=== PATIENT | male | born 1990 | race Caucasian/White ===

== ENCOUNTER 2016-07-26 09:45 | Inpatient (IN) | payer OTHER ==
[~2016-07-26] VITALS: Ht 180.3 cm; Wt 78.1 kg
--- NOTE | ~2016-07-26 | TXPLANREV ---
"PATIENT: JUSTICE RUIZ | | [facility] UNIT #: [id number] | [address] AGE/SEX: 26 M : 89 | [address] | [place] [address] ADMIT/REG DATE: 07/26/16 | ROOM: [facility] LOC: ADTC | ADTC | Treatment Plan/Staffing Review Date: 08/23/16 Treatment plan was reviewed and determined appropriate as written: yes, client is working on relapse prevention, he didn't do Con Game packet as didnt relate or understand so switched criminogenic packet to easier one with stages of recovery. Treatment plan was reviewed and the following changes/addition/deletions are necessary: Discharge plans were reviewed and determined appropriate as previously documented: Client discharges on 08/30/16 (his stay was extended 1 week) and he is referred to the [facility] and [facility] if openings. We havent heard back from probation to find out if 3/4way house is an option, otherwise, client is to return to care home. He also is referred to AA/NA 3-7x weekly and calling sponsor daily. Discharge plans were reviewed and determined to be as follows: Other pertinent issues discussed during this staffing review include: Client did get sponsor and has used him. He wants structure of 1/2way house to help him with recovery which shows acceptance. Client seems to procrastinate or have difficulty asking for help. Staff Present: Dr. Alvarez, Kirsten Wilson, Marifer Nicholas, Marjorie Jaquez, Lynn Bliss PRIMARY COUNSELOR: Danielle Adan Client Signature Counselor Signature Date Time "
--- NOTE | ~2016-07-26 | INDIVTXPL2 ---
"PATIENT: JUSTICE RUIZ | | [facility] UNIT #: [id number] | [address] AGE/SEX: 26 M : 89 | [address] | [place] [address] ADMIT/REG DATE: 07/26/16 | ROOM: [facility] LOC: ADTC | ADTC | Individualized Treatment Plan DATE: 08/04/16 Problem Statement/Issue Identified: Client is experiencing family discord and distancing as a result of past alcohol & drug usage. Goal: Client is to learn about effects of addiction on family/self and learn how to build more honest/open communication with family to gain support in his recovery. Objectives/Activities to achieve goal: 1. Client is to attend Family Educational program and participate and Sunday starting at 2pm. See Family notes. Due Date: 08/14/16 Complete: Incomplete: 2. Client is to have family session and build more open communication and listen to how his addiction affected his family. See Family Session note. Due Date: 08/14 at 1pm or by 08/23/16 Complete: Incomplete: 3. Client is to write feelings letters owning how his addiction hurt loved ones, making ammends, sharing feelings, etc. Share with family or in a group. Due Date: 08/23/16 Complete: Incomplete: Client Signature Date Counselor Signaure: Date Outcome/Measurement of Progress Towards Goal: Counselor Signature: Date "
--- NOTE | ~2016-07-26 | INDIVTXPL2 ---
"PATIENT: JUSTICE RUIZ | | [facility] UNIT #: [id number] | [address] AGE/SEX: 26 M : [birth year] | [address] | [place] [address] ADMIT/REG DATE: 07/26/16 | ROOM: [facility] LOC: ADTC | ADTC | Individualized Treatment Plan DATE: 08/09/16 Problem Statement/Issue Identified: Client needs to identify relapse warning signs and develop a plan to deal with them as they arise. Goal: Client is to learn about relapse prevention, identifying relapse triggers and how to avoid relapse. Objectives/Activities to achieve goal: 1. Client is to attend Relapse Prevention class every Sunday when in treatment and participate. See class notes. Due Date: 08/22/16 Complete: Incomplete: 2. Client is to fill out Relapse Prevention packet, identifying his top 10 relapse triggers. Discuss with counselor how to cope to avoid relapse. See counselor notes and share selected pages in group. Due Date: ongoing Complete: Incomplete: Client Signature Date Counselor Signaure: Date Outcome/Measurement of Progress Towards Goal: Counselor Signature: Date "
--- NOTE | ~2016-07-26 | CLPRLASSUM ---
"PATIENT: JUSTICE RUIZ | | [facility] UNIT #: [id number] | [address] AGE/SEX: 26 M : 89 | [address] | [place] [address] ADMIT/REG DATE: 07/26/16 | ROOM: [facility] LOC: ADTC | ADTC | Client Problem List/Assessment Summary Date: 08/01/16 Problems identified by the client: addiction, family/guilt, self-esteem, spirituality, relapse prevention Problems identified by significant others: addiction, being responsible/proud of self Client's Strengths: caring, smart, outgoing Problem List: Code: T Client needs to address addiction and criminal attitudes which leads to substance abuse and crimes. Code: T Client is experiencing family discord and distancing as a result of past alcohol & drug usage. Code: T Client needs to identify ways to improve self esteem to help maintain halfway sobriety from all mood altering substances. Code: T Client use to attend uatsdin, now has confusion about Higher Power and spirituality which got lost in his abuse of chemicals. Code: T Client needs to identify relapse warning signs and develop a plan to deal with them as they arise. Code Johnston: T: to be addressed during course of treatment O: problem noted, expected to resolve itself with abstinence--specific tx plan not required R: problem noted, will be referred upon discharge PRIMARY COUNSELOR: Danielle Adan"
--- NOTE | ~2016-07-26 | RESCARESUM ---
PATIENT: JUSTICE RUIZ | | [facility] UNIT #: [id number] | [address] AGE/SEX: 26 M : 89 | [address] | [place] [address] ADMIT/REG DATE: 07/26/16 | ROOM: [facility] LOC: ADTC | ADTC | Summary of Residential Care Primary Counselor: Danielle Adan [facility] Date of Admission: 07/26/16 Date of Discharge: 08/29/16 Referral Source: Auditing Specialist, Application Architect Manager and self Primary Care Provider Prior to Admission: no doctor listed Admitting Diagnosis: 304.30 Cannabis use disorder-severe, 303.90 Alcohol use disorder-severe, 304.40 Stimulant use disorder-moderate, 305.1 Tobacco Dependency Discharge Diagnosis: same Goals Achieved: Client successfully completed residential treatment for addiction and in his doing step 1 he seemed to fully accept his powerlessness over drugs/alcohol. Client asked to go to a structured environment like a 1/2way house as he felt he needs alot of help/support. Client magnus did work on self-esteem, started to address spirituality, worked on feelings letters with family, and starting to deal with feelings better. Client did work on Relapse Prevention and will need to continue work in aftercare at [facility]. He did do EMDR to help improve his self-esteem and had some woundedness from dad being very proud of him but then dropped out of sports perceived he lost sense of feeling loved by father. He may benefit from further work on these issues if willing, but did gain insight. Clients anger showed up when had alot of anxiety about finding an opening at a 1/2way house but he did handle it well and gained insight into his feelings. Continued Obstacles to Sobriety/Relapse Issues: boredom, isolating, stress/worry(family issues), negative attitude, lack of taking action/ procrastination/laziness, stuffing feelings, not asking for help, worry about others instead of self, old people/places/things, put on front "I'm Fine", feeling different or not as bad as. Family Issues Addressed: Clients dad and mom did come to a family session and counselor did encourage them both to do counseling for their on chemical issues. Mom attended entire family program and dad attended one day. Mom shared she is new to recovery and meetings and hopeful to be on Drug Court. Client tends to worry about his parents. x Individual Therapy x Group Therapy x Educational Series on Substance Abuse x Parents/Significant Others Attended Family Program Acute Medical Problems During the Course of Treatment Transferred to Hospital During the Course of Treatment x Accepting of Substance Abuse Problem Non-accepting of Substance Abuse Problem Required Psychological or Psychiatric Consultation During the Course of Treatment Completed AA Step # 1 During This Level of Care PATIENT: JUSTICE RUIZ | | [facility] UNIT #: [id number] | [address] [place] [address] AGE/SEX: 26 M : [birth year] | [address] | [place] [address] ADMIT/REG DATE: 07/26/16 | ROOM: [facility] LOC: ADTC | [facility] | Summary of Residential Care Significant Incidences During Treatment: Reason For Discharge: x Completed Residential TX Goals and Ready For Next Level of Care Left Tx Against Medical Advice/Treatment Goals Not Complete Completed Residential Tx Goals But Refusing Continuing Care Recommendations Discharged Due to Noncompliance/Treatment Goals not Completed Discharged Earlier Than Planned Due to: Continuing Care Plan/Recommendations: Intensive Partial Care x Sponsor Partial Care x AA Meetings/NA Meetings Outpatient Co-dependency Services Therapeutic Community x 1/2 Way House 3/4 Way House Mental Health Therapy Marriage Counseling Other Specific Continuing Care Plan: Client is being referred to the [facility] and is to enter their program today!! He will benefit by working on spirituality/relationship with God, stress/anxiety, money management, steps 2-8, stuffing feelings and worrying about his family/improving family relationships and communication. PRIMARY COUNSELOR: Danielle Adan
--- NOTE | ~2016-07-26 | TXPLANREV ---
"PATIENT: JUSTICE RUIZ | | [facility] UNIT #: [id number] | [address] AGE/SEX: 26 M : 89 | [address] | [place] [address] ADMIT/REG DATE: 07/26/16 | ROOM: [facility] LOC: ADTC | ADTC | Treatment Plan/Staffing Review Date: 08/16/16 Treatment plan was reviewed and determined appropriate as written: YES, Client has been procrastinating writing letters and 2 are due for Family night on 08/21/16. Then is to work on self-esteem also and do selected pages of Simply Measured Game. Treatment plan was reviewed and the following changes/addition/deletions are necessary: Discharge plans were reviewed and determined appropriate as previously documented: Client is extended in his stay til 08/30/16, he applied at [facility] but they don't have openings at this time so will try to apply to [facility] and [facility] also. He has to return to correction if no openings at a 1/2way house. Discharge plans were reviewed and determined to be as follows: Other pertinent issues discussed during this staffing review include: Client has had meaningful family involvement and his dad is coming 08/17 so he will be attending educational part twice. His mom is to be on Drug Court and states she is clean/sober now, going to meetings and is supportive. Staff Present: Kirsten Wilson, Dr. Belcher, Marifer Nicholas, Lynn Bliss, Marjorie Jaquez PRIMARY COUNSELOR: Danielle Adan Client Signature Counselor Signature Date Time "
--- NOTE | ~2016-07-26 | TXPLANREV ---
"PATIENT: JUSTICE RUIZ | | [facility] UNIT #: [id number] | [address] AGE/SEX: 26 M : 89 | [address] | [place] [address] ADMIT/REG DATE: 07/26/16 | ROOM: [facility] LOC: ADTC | ADTC | Treatment Plan/Staffing Review Date: 08/09/16 Treatment plan was reviewed and determined appropriate as written: finished step 1, is to start family program and writing feelings letters. Treatment plan was reviewed and the following changes/addition/deletions are necessary: Discharge plans were reviewed and determined appropriate as previously documented: Discharge plans were reviewed and determined to be as follows: Client is to discharge 08/23/16 and has applied to the [facility]. Plan [facility]. Other pertinent issues discussed during this staffing review include: Client appears positive about treatment and is to call sponsor. Staff Present: Jamey Scales, Mayra Dewitt, Lynn Bliss, Marifer Nicholas PRIMARY COUNSELOR: Danielle Adan Client Signature Counselor Signature Date Time "
--- NOTE | ~2016-07-26 | INDIVTXPL2 ---
"PATIENT: JUSTICE RUIZ | | [facility] UNIT #: [id number] | [address] AGE/SEX: 26 M : 89 | [address] | [place] [address] ADMIT/REG DATE: 07/26/16 | ROOM: [facility] LOC: ADTC | ADTC | Individualized Treatment Plan DATE: 08/18/16 Problem Statement/Issue Identified: Client needs to identify ways to improve self esteem to help maintain jail sobriety from all mood altering substances. Goal: Client is to build self-esteem to help strengthen his recovery. Objectives/Activities to achieve goal: 1. Client is to write 10 good things about himself and share with counselor. Due Date: 08/22/16 Complete: Incomplete: 2. Client is to ask 7-8 peers & 3-4 Staff to name 2 good qualities about himself and he is to write them down adding them to his list. Share with counselor. Due Date: 08/22/16 Complete: Incomplete: Client Signature Date Counselor Signaure: Date Outcome/Measurement of Progress Towards Goal: Counselor Signature: Date "
--- NOTE | ~2016-07-26 | INDIVTXPL2 ---
"PATIENT: JUSTICE RUIZ | | [facility] UNIT #: [id number] | [address] AGE/SEX: 26 M : 89 | [address] | [place] [address] ADMIT/REG DATE: 07/26/16 | ROOM: [facility] LOC: ADTC | ADTC | Individualized Treatment Plan DATE: 08/01/16 Problem Statement/Issue Identified:Client needs to address addiction and criminal attitudes which leads to substance abuse and crimes. Goal: Client is to address his criminal behaviors/attitudes and addiction, identifying how it has been hurting his life and learn how to work the AA/NA program to strengthen his recovery. Objectives/Activities to achieve goal: 1. Client is to fill out Getting Started and Step 1 packets, identifying 15 values he has compromised due to addiction. Share with counselor and share selected pages in group. Due Date: 08/11/16 Complete: Incomplete: 2. Client is to fill out Con Game PKT identifying criminal attitudes and how to change them. Share with counselor. Due Date: 08/21/16 Complete: Incomplete: 3. Client is to attend and talk at AA/NA weekly, get and use sponsor and help chair or pick topic at a meeting. Share progress with counselor. Due Date: ongoing Complete: Incomplete: Client Signature Date Counselor Signaure: Date Outcome/Measurement of Progress Towards Goal: Counselor Signature: Date "
--- NOTE | ~2016-07-26 | INDIVTXPL2 ---
"PATIENT: JUSTICE RUIZ | | [facility] UNIT #: [id number] | [address] AGE/SEX: 26 M : 89 | [address] | [place] [address] ADMIT/REG DATE: 07/26/16 | ROOM: [facility] LOC: ADTC | ADTC | Individualized Treatment Plan DATE: 08/09/16 Problem Statement/Issue Identified: Client use to attend religion, now has confusion about Higher Power and spirituality which got lost in his abuse of chemicals. Goal: Client is to learn about spirituality and HP to help him with his recovery. Objectives/Activities to achieve goal: 1. Client is to attend Spirituality Class every Sunday while in treatment and participate. See class notes. Due Date: 08/23/16 Complete: Incomplete: 2. Client is to discuss HP concept and spirituality with AA/NA or group. Share progress with counselor. Due Date: 08/23/16 Complete: Incomplete: 3. Client is to pray every AM for help/guidance, and every PM reflect on how he sees God working with self/others and thank God. Share progress with counselor. Due Date: ongoing Complete: Incomplete: Client Signature Date Counselor Signaure: Date Outcome/Measurement of Progress Towards Goal: Counselor Signature: Date "
--- NOTE | 2016-07-26 11:19 | NUR ---
FAMILY SESSION 1 HR/ Client, his mom and counselor met shortly after he was admitted. Client was on probation in and not following it, so in senior care and got new charge (gun) and went to senior care in [facility]. He has used meth, alcohol and pot heavily, mom saw him drinking in mornings when he was trying to stay clean off pot/meth. She wondered if he has depression cause his father has it and is on lexapro. His mom shared she is on Drug Court in and has almost 4 months clean now, is to come here for IOP. Client says when he gets in a slump it is hard to get out of and he needs help with holding good work ethic cause feels bad when he misses work due to his using and then doesn't bother to go back. He worked for his mom for 3 months and for his [id number]. Client was in senior care 91 days, had eval in senior care and was told by court they would offer him probation if he does treatment. He was on probation and was to attend outpatient treatment/AA/NA but never did go, always thought he could do it on his own, or hide his use. He states he does want 1/2way house. Mom shared he was stealing from family the past 2 years. She shared their dad drinks and she wants him to not have alcohol in the house. Client used alcohol and pot on weekends 1+x/month and by 18 pot was daily, he tried meth age 17 but by age 23 was weekly. Mom said she knew he drank and did pot in HS but it never got him in trouble. Client was oriented to counseling and mother was informed about family program.
--- NOTE | 2016-07-26 12:55 | NUR ---
FAMILY CONTACT-Clients mom was with client upon admission, was given family packet and is to come for family program, she also is to be in IOP she states as is on Drug Court in [facility]. Mom said he stole from them, depression runs on his dads side of family and wants him to get help with his meth addiction. She was aware of his alcohol use in HS, but didn't know he used in Jr.High, she said it never caused problems in HS. She indicates the dad has drinking problem and she hopes he will understand it can't be in the house. Mom bonded him out of nursing home, so he has to return to nursing home.
--- NOTE | 2016-07-26 14:42 | NUR ---
ADMISSION NOTE Rights/Responsibilities: Copy given and explained to client. Signed and accepted by client. Client oriented to physical lay out of the ADTC unit, given Big Book and admission packet. A Edward was assigned. Abdullahi Client is a 26yr old single male. Referred by probation. Brought to tx from care home in [place], [place] where he lives by his mother. DOC Cannabis, last used 04/23/16, 06/07 daily. Allergies: none, Meds: none. Mother will participate in family tx. Was searched no contraband found. Initial paperwork given and guidelines gone over. Doctor was notified.
--- NOTE | 2016-07-26 23:18 | NUR ---
Tech note:Client participated in rec-worked on beaded projects SE:making it here
--- NOTE | 2016-07-26 23:40 | NUR ---
Education: 1 hour lecture on step 2 & 3 given by counselor
--- NOTE | 2016-07-27 04:39 | NUR ---
Bed note: client was in bed with eyes closed and no distress at all bed checks.
--- NOTE | 2016-07-27 11:44 | NUR ---
Group 1.5hrs 1:10 Client was orientated about group goals and rules. Feelings letters were shared and feedback was given by peers. Client sat quietly through group and shared when prompted at the end of group. Student- Antoni Garcia
--- NOTE | 2016-07-27 14:21 | NUR ---
Education 1 Hour: Client heard a presentation on, "Marijuana."
--- NOTE | 2016-07-27 14:58 | NUR ---
Tech Note: Client participated in Spiritual Enrichment in the morning and walked in the halls for afternnon exercise. Client stated that he is working on, "How to Get Started in Treatment."
--- NOTE | 2016-07-27 16:44 | NUR ---
Education: 1hr Participated in Step 2 work group. Very involved in the group discussion.
--- NOTE | 2016-07-27 23:05 | NUR ---
Tech Note: Client participated in rec and attended A.A.Meeting.
--- NOTE | 2016-07-27 23:23 | NUR ---
Education Note: Client watched the healthy families video which lasted an hour.
--- NOTE | 2016-07-28 04:47 | NUR ---
Bed note: Client was in bed with eyes closed and no distress at all bed checks.
--- NOTE | 2016-07-28 14:38 | NUR ---
Group 1.5hr/ 11:1 Clients all were attentive as peers shared GS packets and some shared how they relate. This client was quiet and attentive.
--- NOTE | 2016-07-28 15:26 | NUR ---
PEER REVIEWS 1 HR: Clt participated in peer review process and was able to give open and honest feedback to those receiving a review.
--- NOTE | 2016-07-28 16:30 | NUR ---
Tech Note: Client watched a video "How to Sabotage Your Treatment" and is working on Getting Started.
--- NOTE | 2016-07-28 16:31 | NUR ---
Tech Note: Client watched a video "How to Sabotage Your Treatment" and is working on Getting Started.
--- NOTE | 2016-07-28 23:51 | NUR ---
TECH NOTE: Client participated in guideline reading, watched tv/movies and attended off site aa meeting SE: peer review
--- NOTE | 2016-07-29 04:47 | NUR ---
BED NOTE: Client was in bed, motionless with eyes closed all three bed checks.
--- NOTE | 2016-07-29 12:16 | NUR ---
PEER REVIEWS 1 HR: Clt participated in peer review process and was able to give open and honest feedback to those receiving a review.
--- NOTE | 2016-07-29 16:20 | NUR ---
Tech Note: Client went to AA mtg at [facility] and [place]. Is working on Getting Started.
--- NOTE | 2016-07-29 20:05 | NUR ---
TECH NOTE: Client played Catch Phrase for REC, attended off site AA meeting, watched TV/movies SE: melisa alcantara
--- NOTE | 2016-07-30 04:49 | NUR ---
Bed Note: Clt lay motionless in bed with eyes closed showing no distress at all bed checks.
--- NOTE | 2016-07-30 16:05 | NUR ---
Tech Note: Client participated in Big Book Study. Client stated that he is working on, "How to Get Started in Treatment." Client attended yazidism in the morning and received visitors in the afternoon.
--- NOTE | 2016-07-30 22:53 | NUR ---
TECH NOTE: Client attended AA panel, participated in community clean and watched tv/movies. SE: visits
--- NOTE | 2016-07-31 04:25 | NUR ---
Bed Note: Clt lay motionless in bed with eyes closed showing no distress at all bed checks.
--- NOTE | 2016-07-31 10:18 | NUR ---
Tech notes: Client is working on Getting started
--- NOTE | 2016-07-31 12:00 | NUR ---
Group 1.5hr/ 12:1 Clients heard peer share about guilt and many client gave feedback and related. This client did get involved and related to feeling guilty for friend he told to come over and friend rolled car so they picked him up and friend did get in legal troubles. He also related to his mom having an addiction.
--- NOTE | 2016-07-31 12:43 | NUR ---
Education Note: Client attended educational speaker Kit on Crossaddiction.
--- NOTE | 2016-07-31 16:00 | NUR ---
RECOVERY 101 1 HR/ Clients all brought big books, were given highlighters and shown tools they can use in the big Book on: acceptance, 1/2measures, 12 promises, living in the solution-not the problem, resentments, 2 week prayer to forgiveness, etc. Clients took turns reading and some commented and asked questions.
--- NOTE | 2016-07-31 20:35 | NUR ---
Education: 1 hour lecture on feelings given by counselor
--- NOTE | 2016-07-31 23:45 | NUR ---
Tech Note: Client played a game for rec, and attended N.A.Meeting. SE: N.A.Meeting
--- NOTE | 2016-08-01 04:02 | NUR ---
bed note: client was in bed with eyes closed and no distress at all bed checks.
--- NOTE | 2016-08-01 10:00 | NUR ---
IS 1 hr/ Client and counselor went over his BPS and discussed what his needs and problems are that he will address while in treatment. He doesn't see any trauma issues, is close with mother and they have recovery from addiction in [place] now and he was sad and emotional as he talked about his dad who has drinking problem and one time dad had panic attack because he had been gone but was in next room overhearing dads attack and emotions about this clients addiction and behaviors. He felt terrible about putting his dad through this. Did discuss having family/siblings come to family program.
--- NOTE | 2016-08-01 13:15 | NUR ---
A.M. 1.5 hr group/ Group heard assignments then covered topics of anger, assertivness, forgivness, and how to make amends. This client was attentive.
--- NOTE | 2016-08-01 15:15 | NUR ---
Education Note: Client heard a presentation on, "Grief."
--- NOTE | 2016-08-01 16:00 | NUR ---
BIG GRP 5:21/ We had a big grp to confront sleeping pills being on the unit, dishonesties, and anything else going on that needed to be addressed. This client was attentive and quiet as others processed issues. His name did come up as knowing some of this with coffee and pills.
--- NOTE | 2016-08-01 16:28 | NUR ---
Tech Note: Client particiapted in light stretching for morning exercise and walked in the halls in the afternoon. Client followed programming.
--- NOTE | 2016-08-02 00:07 | NUR ---
Education: 1 hour lecture given by Counselor on Step 1
--- NOTE | 2016-08-02 00:21 | NUR ---
Tech note: client worked on projects for the alumni lea for rec and attended AA meeting SE: Allison and getting welcome chip
--- NOTE | 2016-08-02 04:17 | NUR ---
Bed Note: Clt lay motionless in bed with eyes closed showing no distress at all bed checks.
--- NOTE | 2016-08-02 10:30 | NUR ---
Tech Notes: Client is working on Getting started
--- NOTE | 2016-08-02 13:07 | NUR ---
Group 1.5hours 1:11 Clients discussed the topic of resentments. Client sat quietly most of group until prompted to participate. Client shared about how he was able to find a way to let go of his resentments toward his mother and how they had begun to start working on a healthier relationship in hopes to set an example for his father who still drinks. Student: Antoni Jaquez BS [facility]
--- NOTE | 2016-08-02 13:27 | NUR ---
Education note: Client attended education by [facility]
--- NOTE | 2016-08-02 17:56 | NUR ---
SPIRITUAL EDUCATION 1 HR. Today we discussed ways to quiet the mind and meditation and creativity.
--- NOTE | 2016-08-02 23:07 | NUR ---
tech note: Client played a game for recreation & attended onsite NA meeting.Client's mom attended the NA meeting. SE: Group,NA & his mom coming to the meeting.
--- NOTE | 2016-08-03 02:18 | NUR ---
Education: 1 Hour. Client attended "Unresolved Anger" video & discussion presented by staff.
--- NOTE | 2016-08-03 04:59 | NUR ---
BED NOTE: Client was in bed motionless with eyes closed all three bed checks.
--- NOTE | 2016-08-03 11:30 | NUR ---
AM GRP 1.5 HRS, Ratio 1:12/ Clt sat mostly quiet, until prompted, then stated he could relate to a couple of his peers, and stated he had to be the go between, when it came to his parents fighting, and that he had to clean up bllod, used with his parents, and that now his mom has been clean as long as he has, been coming to meetings, but she's using him to confide in and he feels like her sponsor.
--- NOTE | 2016-08-03 11:32 | NUR ---
Tech Note: Client participated in Spiritual Enrichment. Client stated that he is working on Step One. Client reported in community that there had been a mistake about the number of packs of cigarettes that had been dropped off for him, and that there were not any missing afterall.
--- NOTE | 2016-08-03 13:08 | NUR ---
Education 1 Hour: Client heard a presentation from a member of the recovery community, who shared his experience, strength and hope.
--- NOTE | 2016-08-03 16:09 | NUR ---
Medication Note: Client took prn benzonatate and ibuprophen for chest pain rated at 7, related to coughing at 0958 and made no further complaint.
--- NOTE | 2016-08-03 16:52 | NUR ---
STEP EDUCATION/1 HR/ focus was on step 4. Discussed what step 4 was about and then each person answered if there were any things in their family history that bothers them and do they feel they are blocked in any area. This client participated.
--- NOTE | 2016-08-03 20:21 | NUR ---
Education 1HR: Clt watched video by Mei Maldonado on Step 5.
--- NOTE | 2016-08-03 22:34 | NUR ---
TECH NOTE: Client played Catch Phrase for REC and attended onsite AA meeting. Left Guided Meditation because "client felt they were a distraction to others" SE: group
--- NOTE | 2016-08-04 04:27 | NUR ---
Bed Note: Clt lay motionless in bed with eyes closed showing no distress at all bed checks.
--- NOTE | 2016-08-04 12:01 | NUR ---
Group 1.5 Hr Ratio 1:10/Topics today were a step one a grief letter and a getting started packet. Client shared positive feedback with peers sharing issues and assignments.
--- NOTE | 2016-08-04 14:00 | NUR ---
IS 1 hr/ Client and counselor discussed his progress, did get GS done and is to start on step 1 now. Did ramona pages to share in GS. Client is open, his dad is alcoholic and he felt shame with everyone in [facility] knowing mom was methhead, but now is close to mom, she came to meeting last night and will be here next for Family program. Did call her and set up family session for 08/14 1pm. Client wants his dad to come and will let him know it is important to him.
--- NOTE | 2016-08-04 15:50 | NUR ---
Tech Note: Client watched a video "It Can't Happen To Me" and is working on Step 1.
--- NOTE | 2016-08-04 21:53 | NUR ---
med note: client complained of body pain pain level 5. motrin 400 given
--- NOTE | 2016-08-04 22:39 | NUR ---
Tech note : Client watched tv, played games and talked on the phone. Client walked to an offsite meeting. SE; Games with peers
--- NOTE | 2016-08-05 05:00 | NUR ---
Bed note: Client was in bed with eyes closed and no distress at all bed checks.
--- NOTE | 2016-08-05 15:14 | NUR ---
Tech Note: Client attended N.A.Panel and is working on Step 1, and FL's
--- NOTE | 2016-08-05 20:44 | NUR ---
tech note: client played game for recreation & attended offsite AA meeting.Client watched tv. SE: visit for tomorrow.
--- NOTE | 2016-08-06 12:04 | HP ---
ADMIT: 07/26/2016 RM/LOC: [id number] [facility] MR#: [id number] [address] [facility] [address] [place] [id number] HÉCTOR RUIZ [address] [place] [address] History and Physical SEX: M AGE: 26 : 1990 DATE OF SERVICE: CHIEF COMPLAINT: Chemical dependency. HISTORY OF PRESENT ILLNESS: Héctor is a 26-year-old, single, white male, from [place], [place] admitted to residential level treatment at [place] on July 26, 2016 [facility] April 23 through July 26 for felon with possession of deadly weapon charges with probation and previously for theft by unlawful taking with prior DUIs. Following his care home time, he was referred to residential level of treatment for drug and alcohol abuse and dependency. Héctor's drug of choice on admission is cannabis. He first started smoking pot at 17 years of age with friends on weekends. By 18, he was smoking daily and would smoke about 0.5 ounce a week. Heaviest use was 19 until now, when he smoked basically 0.25 ounce a day. His last use was April 23, 2016. Second drug of choice is alcohol. He first started drinking at 17 years of age with friends. In high school, he drank about a 4th of a liter of vodka or whiskey on weekends. From 19 to 25, he drank about a 4th of a liter of hard liquor 1-2 times a month. States the last year he was drinking 6 pack or more on a daily basis. Last alcohol use was April 23, 2016. Third drug of choice is methamphetamines. He first started using meth at 16 years of age. States he never used again until 18. States from [age], he used about 10 times a year. From 23 until now, he used about 2 g a week and would use usually a 0.25 to 0.5 g 4-6 times a week. His last use was December 2015. He denies ever doing IV drugs or dealing drugs. He admits to using cocaine a couple of times and also tried mushrooms a couple of times. PAST MEDICAL HISTORY: OPERATIONS: None. ILLNESSES: None. MEDICATIONS: None. ALLERGIES: NONE KNOWN. SOCIAL HISTORY: A 26-year-old, single, white male. He has previously worked doing some construction jobs. Smokes a pack of cigarettes a day. He has no children. FAMILY HISTORY: Negative for heart attacks, strokes, and cancer. He has father and uncle, who are alcoholics. He states that alcohol was always around in the family. States his mother was a meth addict. REVIEW OF SYSTEMS: Negative. ADMIT: 07/26/2016 RM/LOC: A.508 [facility] MR#: [id number] [address] [place] [id number] [place] [address] History and Physical SEX: M AGE: 26 : 1990 PHYSICAL EXAMINATION: VITAL SIGNS: He is 5 feet 11 inches, weight of 78 kg, blood pressure 127/73, pulse 76, and temp 96.1. GENERAL APPEARANCE: A 26-year-old male, who is alert, oriented, in no acute distress. Affect is appropriate. HEENT: Pupils reactive. TMs normal. Throat normal. NECK: Normal. HEART: Regular without murmur. LUNGS: Clear. ABDOMEN: Soft, nontender, benign. AND RECTAL: Deferred. EXTREMITIES: Normal. NEUROLOGIC: Normal. ASSESSMENT: 1. Cannabis use disorder, severe. 2. Alcohol use disorder, severe. 3. Stimulant use disorder, moderate to severe. 4. Tobacco dependency. PLAN: He is placed on multivitamin and thiamine given his history of prior alcohol abuse and dependency. We will proceed with drug and alcohol abuse dependency treatment and counseling and further evaluation and management based on his course during hospitalization. Please see his hospital record for the details. Seth Alvarez MD/ evelia JOB #: [id number] CC: Seth Alvarez, Attending Physician Triston Pollard, Family Physician
--- NOTE | 2016-08-06 15:58 | NUR ---
Tech Note: Client is working on Step1. He attended sikh and had a visit today. He was late to community meeting.
--- NOTE | 2016-08-06 22:20 | NUR ---
Tech note: Participated in community clean, attended AA panel with Jese Carson and went to an onsite CLIENT RESOURCE SPECIALIST meeting. SE; AA speaker
--- NOTE | 2016-08-07 04:59 | NUR ---
Bed note: Client was in bed with eyes closed and no distress at all bed checks.
--- NOTE | 2016-08-07 11:30 | NUR ---
Experiential Group 1.5hr/ Clients all participated in Family Sculpturing by role-playing, relating and giving feedback. This client was involved and attentive.
--- NOTE | 2016-08-07 13:27 | NUR ---
Education note: Client attended education speaker Scarlet on Tobacco.
--- NOTE | 2016-08-07 14:18 | NUR ---
Tech Note: client is working onStep 1.
--- NOTE | 2016-08-07 15:00 | NUR ---
IS 1 HR/ Client and counselor discussed his tx planning and assignments, he did not do much work on step 1 over weekend so counselor confronted him and helped him with how to do page 11, as his mom will be coming to family this week and he needs to start her letter. Client apologized and will buckle down on homework. Did call mom about family program and set up family session 08/14 at 1pm.
--- NOTE | 2016-08-07 16:00 | NUR ---
RECOVERY 101 1 HR/ Clients all shared what they have struggled with in treatment and what helps them. This client shared he faced going to skilled nursing or getting help, originally wanted skilled nursing and didn't want to change but the person that did his evaluation helped him to see he wants to change. He said he is able to cry with his counselor.
--- NOTE | 2016-08-07 18:03 | NUR ---
Education: 1 Hour. Client attended "Forgiveness" lecture presented by staff.
--- NOTE | 2016-08-07 23:14 | NUR ---
tech note: client played a game for recreation & attended onsite NA meeting. Client was redirected by tech for having his feet up on the table in the recreation room. SE: NA meeting.
--- NOTE | 2016-08-08 04:34 | NUR ---
tech note: client was motinless in no distress at all bed checks.
--- NOTE | 2016-08-08 13:56 | NUR ---
A.M. 1.5 hr res group/ratio 1:8/ Group heard a grief letter, a getting started, and also discussed shame, guilt, and forgiving self. This client shared and said he is 26 and feels ashamed he has nothing to show for it and is ready to do somthing about it.
--- NOTE | 2016-08-08 15:37 | NUR ---
Tech Note: Client attended programming on Relapse Prevention and is working on Step 1.
--- NOTE | 2016-08-08 16:23 | NUR ---
Relapse Prevention, 06/26 ration, 1.0 hours, Client attended and participated in relapse prevention education which focused on relapse triggers/issues.
--- NOTE | 2016-08-08 22:21 | NUR ---
TECH NOTE: Client attended Alumni meeting and on-site AA meeting. SE: all day
--- NOTE | 2016-08-08 22:55 | NUR ---
EDUCATION NOTE: 1HR lecture on Shame given by counselor
--- NOTE | 2016-08-09 04:43 | NUR ---
Bed note: Client was in bed with eyes closed and no distress at all bed checks.
--- NOTE | 2016-08-09 10:07 | NUR ---
Tech note: Client is working on Step 1
--- NOTE | 2016-08-09 11:30 | NUR ---
RES GROUP 1.5 HRS. RATIO 06/13. Topics today were assignments shared, addiction itself, craving, and spirituality. This client shared that he struggles with praying and finding a HP. He said he notices his roommate praying all the time. I asked if it seemed to help him and he said he has seen that it does, so just encouraged him to keep asking questions, and seeking.
--- NOTE | 2016-08-09 12:45 | NUR ---
Education note: Client attended speaker Dell Stephenson
--- NOTE | 2016-08-09 15:52 | NUR ---
IS 1 hr/ Client had page 10-11 done, but when looked at 10 he had wrote detailed examples of his values and did 20+ but forgot he was to tell how his addiction compromised them so is to add extra sheet on this. Client asked to go to [facility] as he wants structure, he states he can't return home to , to much using and guilt in his parents home. client signed releases to [facility] and [facility]. he has used IV a few times in 2013 but not since. Is to get step 1 done and letters to both parents by Sunday.
--- NOTE | 2016-08-09 16:10 | NUR ---
SPIRITUAL EDUCATION 1 HR. Topic today was on how addiction is a disease of body mind and spirit and how the Steps fit in treating the SPIRIT. We also talked about ways to spirituality, payoffs, and how spirituality is related to both addiction and recovery.
--- NOTE | 2016-08-09 18:16 | NUR ---
Education: 1 Hour. Client attended "Boundaries" lecture presented by staff.
--- NOTE | 2016-08-09 22:14 | NUR ---
Tech note : Client played pictionary for rec and attended an onsite NA meeting. SE: Mom at NA meeting
--- NOTE | 2016-08-10 05:19 | NUR ---
tech note: client was motionless in no distress at all bed checks.
--- NOTE | 2016-08-10 09:00 | NUR ---
TRAUMA NOTE- client denies any trauma but has depression off and on, loss of a relationship, strained relationship with father at times who uses/drinks.
--- NOTE | 2016-08-10 11:57 | NUR ---
Group 1.5 Hr Ratio 1:9/Topics today were feelings letters and an anger and hurt assignment. A client also shared how her just say no assignment went Client shared how he could relate to what peers were sharing.
--- NOTE | 2016-08-10 15:48 | NUR ---
Tech Note: Client participated in Spiritual Enrichment in the morning and went for an outdoor walk in the afternoon. Client stated that he is working on Step One and writing Feelings Letters.
--- NOTE | 2016-08-10 16:34 | NUR ---
Education 1 Hour: Client heard a presentaion on "Wellness in Recovery."
--- NOTE | 2016-08-10 17:06 | NUR ---
FAMILY EDUCATION 3 HRS Client attended family group with his mother. Client shared about his history of using alcohol with his father. Client's mother expressed concern because his father and grandfather are both alcoholics. Client shared that he felt relieved to be able to talk about his use with his mother. Student: Antoni Garcia
--- NOTE | 2016-08-10 23:06 | NUR ---
Tech note: Client worked on craft projects for the [facility] for rec and attended AA meeting SE:group
--- NOTE | 2016-08-11 00:10 | NUR ---
Education note: Clients watched a movie on "my attitude' by Babar Cervantes.
--- NOTE | 2016-08-11 04:54 | NUR ---
Bed note; client was motionlees, with eyes closed at all bed checks.
--- NOTE | 2016-08-11 11:52 | NUR ---
Group 1.5 Hr Ratio 1:12/Topics today were a change plan, resentment packet and a getting started. One new peer was orientated to group rules and goals. Client shared how he could relate to resentments a peer was sharing and he was very quiet and shared he had to go to the bathroom very bad but he made it through group.
--- NOTE | 2016-08-11 14:04 | NUR ---
PEER REVIEWS 1.25 HRS: Clt participated in peer reviews and took a risk to give open and honest feedback to those receiving a review.
--- NOTE | 2016-08-11 16:16 | NUR ---
Tech Note: Client went with group for outside walk and watched "Marijuana", by Clayton Cervantes, for education. Clt is working on Feelings Letters.
--- NOTE | 2016-08-11 23:47 | NUR ---
Tech Note: Client read guidelines with peers. He attended A.A. SE: All Day
--- NOTE | 2016-08-12 05:32 | NUR ---
Bed Note: Client was motionless with eyes closed at all bed checks.
--- NOTE | 2016-08-12 15:45 | NUR ---
Tech Note: Client working on Feelings Letters.
--- NOTE | 2016-08-12 20:30 | NUR ---
Tech Note: Client played a game for rec. They also attended the A.A.Meeting at [address] [place] [address]. SE: As he was waiting to use restroom at morning A.A.Meeting he watched another male client come out of the [facility] restroom so they both got a good laugh. Recovery can be fun!
--- NOTE | 2016-08-13 05:31 | NUR ---
Bed Note: Client was motionless with eyes closed at all bed checks.
--- NOTE | 2016-08-13 15:29 | NUR ---
Tech Note: Client participated in Big Book Study. Client stated that he is working on writing Feelings Letters. Client received visits.
--- NOTE | 2016-08-13 16:06 | NUR ---
Tech Note: Client participated in Big Book Study. Client stated that he is working on writing Feelings Letters. Client received visits.
--- NOTE | 2016-08-13 23:33 | NUR ---
Client attended A.A.Panel and helped with community clean. SE: All Day
--- NOTE | 2016-08-14 05:03 | NUR ---
Bed Note: Client was motionless with eyes closed at all bed checks.
--- NOTE | 2016-08-14 10:10 | NUR ---
Tech note: Client is working on Fl's and mtg with stephanie
--- NOTE | 2016-08-14 12:55 | NUR ---
Group 1.5 hr/ 9:1 Client did give feedback to peers sharing packet/letters. He related to peers and shared about how it helps his mom is in recovery.
--- NOTE | 2016-08-14 14:00 | NUR ---
FAMILY SESSION 1 HR/ Client and his mom present, his dad will be attending both family days next. 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 He resents giving up [employer] for her and then she broke up with him later, she used him as was so needy. He shared how his "depression" kicked in heavy, and he was sick of the misery. He was tearful with how rude/hurtful he was toward his mom. He recalls times would yell at mom and steal from parents/bro and has alot of shame about that. He shared a time he almost froze to when using, friend had to carry him. Mom shared she didn't start using meth til late in her life as a pick-me-up once in a while and then it became more frequent. Client was tearful with what he shared with his mom. He did say mom would clean at wierd hours or be late to everything which is how he knew she was using. Her use got bad past 1-2 years and started off and on past 7 years. She goes to court 08/21/16.
--- NOTE | 2016-08-14 14:37 | NUR ---
Education note: Client attended speaker for education Nitin Shahid
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
--- NOTE | 2016-08-14 22:41 | NUR ---
TECH NOTE: Client participated in family SE: Family
--- NOTE | 2016-08-14 23:58 | NUR ---
Education: 1 Hour. Client attended "Adult Children" presentation given by staff.
--- NOTE | 2016-08-15 05:23 | NUR ---
BED NOTE: Client was in bed, motionless with eyes closed all three bed checks.
--- NOTE | 2016-08-15 11:35 | NUR ---
ABigg res group/ratio 1:10/ Group assignments shared were step one and feelings letters. This client shared he feels afraid there won't be an opening at a sober living place and will have to go back to [facility].
--- NOTE | 2016-08-15 16:29 | NUR ---
Relapse Prevention; 1.0 hours; Client attended and actively participated in relapse prevention which focused on compulsive behaviors and relapse.
--- NOTE | 2016-08-15 16:30 | NUR ---
Tech Note: Client attended speaker meeting, presented by [employer], and Relapse Prevention education. Client is currently working on Feelings Letters and the Big Book.
--- NOTE | 2016-08-15 23:24 | NUR ---
Education note: 1 hour lecture given by counselor on "Self Esteem"
--- NOTE | 2016-08-15 23:36 | NUR ---
Tech note: Client worked on projects for the alumni lea for rec and attended AA meeting SEF:all day
--- NOTE | 2016-08-16 04:13 | NUR ---
BED NOTE: Client was in bed, motionless with eyes closed all three bed checks.
--- NOTE | 2016-08-16 10:54 | NUR ---
Tech note: Client is working on BB
--- NOTE | 2016-08-16 12:10 | NUR ---
AM GROUP 9:06/04.5 HR: Client and peers participated as three peers processed issues and assignments. Much of the focus became how to rebuild a healthy and realistic value system after compromised original values to such a degree in active addiction. This client was active with feedback and personal sharing describing examples of compromising his own values, i.e. stealing from friends, cheating on his high school sweetheart.
--- NOTE | 2016-08-16 13:15 | NUR ---
Education note: Client attended speaker Van for education today.
--- NOTE | 2016-08-16 19:57 | NUR ---
SPIRITUaL EDUCATION 1 HR. Today we discussed difference between spirituality and presybeterian, and then played a spiritual challenge game where group discussed thought provoking questions on spirituality and the meaning.
--- NOTE | 2016-08-16 22:42 | NUR ---
EDUCATION NOTE: 1 HR Counselor gave a lecture on Disease Concept
--- NOTE | 2016-08-16 23:52 | NUR ---
tech note: client played Pictionary for recreation & attended onsite NA mtg. Client was redirected by both techs for wearing a hat on the unit.Client was redirected for having his feet on the chair & tipping. During recreation the client was tipping and fell back in the chair. Client made inappropriate remarks to the tech "that he is dating the her" he was told by the tech to stop. SE:All day.
--- NOTE | 2016-08-17 04:12 | NUR ---
BED NOTE: Client was in bed, motionless with eyes closed all three bed checks.
--- NOTE | 2016-08-17 12:08 | NUR ---
Group 1.5 Hr Ratio 2:20/Topic today was dealing with trauma. A new peer was also orientated to group rules and goals. Client shared how he could relate to peers sharing about their trauma issues.
--- NOTE | 2016-08-17 15:35 | NUR ---
Tech Note: Client participated in Spiritual Enrichment in the morning and went for an outdoor walk in the afternoon. Client stated that he is working on, "Relapse Prevention."
--- NOTE | 2016-08-17 16:47 | NUR ---
Family Education 3hrs Client attended family education and discussed past using history. Client shared about the consequences he experienced during active addiction. Client was accompanied by his father. Student: Antoni Garcia
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
--- NOTE | 2016-08-17 22:08 | NUR ---
EDUCATION NOTE 1HR: Recovery committee presented information on recovery
--- NOTE | 2016-08-17 22:11 | NUR ---
EDUCATION NOTE 1HR: Clients watched Clayton Cervantes video on Behavior
--- NOTE | 2016-08-17 22:39 | NUR ---
TECH NOTE: Client helped by doing crafts for the dance for REC, and attended AA meeting. Client redirected for standing on picnic table waving to tech inside.
--- NOTE | 2016-08-18 04:40 | NUR ---
Bed note: client was in bed moitionless with eyes closed and no distress at all bed checks.
--- NOTE | 2016-08-18 12:19 | NUR ---
GROUP 1.5 HR/ 10:1 A Peer shared about never thinking about actions/impulsive and this led to group relating and sharing. This client shared about having a panic attack/anxiety yesterday, walked out of speaker and thought he might walk out of treatment. A adrian in AA looked him in the eye telling him how great recovery can be when you work the program and client felt terror/fear of the unknown, of success, of something, so left and layed down cause didn't know what to do with his anxiety.
--- NOTE | 2016-08-18 15:49 | NUR ---
PEER REVIEWS 1.25 HRS: Clt participated in peer reviews and took a risk to give open and honest feedback to those receiving a review.
--- NOTE | 2016-08-18 16:13 | NUR ---
Tech Note: Client watched video (The Enablers) and is working on the Big Book.
--- NOTE | 2016-08-18 16:54 | NUR ---
IS 1 hr/ Did go over tx planning with client, he has procrastinated letters so helped him get started. He had 10 good qualities about himself he could write out and is to start asking peers/staff to name 2 each and write them down on his list. Client is concerned about his aftercare but very glad to get an extended stay.
--- NOTE | 2016-08-18 22:22 | NUR ---
Tech Note : Client worked crafts and projects for the dance. Client watched TV. Client went to an offsite AA meeting.
--- NOTE | 2016-08-19 04:38 | NUR ---
Bed note: Client was in bed with eyes closed and no distress at all bed checks.
--- NOTE | 2016-08-19 17:55 | NUR ---
Tech Note: Client attended N.A. Panel and is working on relapse prevention. Client had visit.
--- NOTE | 2016-08-19 19:10 | NUR ---
tech note: client attended offsite Alumni Dance.
--- NOTE | 2016-08-20 04:54 | NUR ---
BED NOTE: Client was in bed, motionless with eyes closed all three bed checks.
--- NOTE | 2016-08-20 16:54 | NUR ---
Tech Note: Client participated in Big Book Study and attended buddhist. Client stated that he is working on writing Feelings Letters. Cient received visitors.
--- NOTE | 2016-08-20 23:22 | NUR ---
tech note: Client attended AA Panel,UNIT ASSISTANT & participated in Community Clean. Client's mom called the tech station twice and was told by tech that unless its an emergency she needs to call the client's phone. Client's mom came to the UNIT ASSISTANT meeting. Client was redirected for horseplay by tech when seen coming out of another peer's room across from his. Tech asked him to come up to the tech station and he denied it even knowing the tech was standing there watching him. This client told the tech at med time that the counselors "think he's doing great." SE: All day.
--- NOTE | 2016-08-21 04:23 | NUR ---
bed note: client was in bed with eyes closed and no distress at all bed checks.
--- NOTE | 2016-08-21 10:43 | NUR ---
Tech notes: Client is working on Relapse Prevention and Con-game
--- NOTE | 2016-08-21 12:00 | NUR ---
Peer Review 1.5 hr/ Clients all participated in giving peer review to 4 peers on what they need to work on. This client was 1 of the 4 and heard: boundaries, alot of hurt and sad inside and needs to let it out, uses joking to cover up, needs to get feelings out more, needs to focus on self, puts up velasco to avoid feelings, felt responsible for alot in his past, needs to get fully in the program and good he is going to 1/2way house, selective with who he shares with/doesn't open up easily, comfortable 1 on 1 but not in groups, needs to push self to open up, hides behind humor, get good sponsor and work on being assertive, has alot of fear with self and uses humor, feels better when gets stuff out, needs to be in touch with spiritual part of program, acts like hes got it all together, stuffs/avoids talking about real issues.
--- NOTE | 2016-08-21 12:55 | NUR ---
Education note: Client attended educational wanda Scott on Marijuana.
--- NOTE | 2016-08-21 16:36 | NUR ---
Recovery 101 1 hr/ Clients discussed fundamental tools and what is important to work a strong recovery program such as: 12 steps, getting and using a sponsor, meetings/home group, read C.A.L., H.O.W./being honest, service work, HP concepts/spirituality, opening up, slogans, serenity prayer, etc. Also discussed the balance, recovery as way of life, 85% is the living problem and why people still go to meetings for their lifetime.
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
--- NOTE | 2016-08-21 23:45 | NUR ---
Tech Note: Client attended N.A.Meeting. Client also went on walk for rec. Had family today SE:Family
--- NOTE | 2016-08-21 23:58 | NUR ---
Education Note: 1 hour lecture on communication given by counselor.
--- NOTE | 2016-08-22 04:13 | NUR ---
Bed Note: client was in bed with eyes closed and no distress at all bed checks.
--- NOTE | 2016-08-22 11:30 | NUR ---
IS 1.5 hr/ Client and counselor went over txplanning, was working on Con Game packet and also is working on the Relapse Prevention packet. Did show him how to take a relapse trigger and develop a plan to prevent relapse. Client is to continue working on these. Client is to do interview with OD for [facility] this week, hopefully PO will approve 3/4way house if no 1/2way house opening. Did start EMDR with client to help with relaxation and primarily his self-esteem, building his strengths, plus his shyness/nervousness when he first got here but has overcame that alot by talking at meetings/groups and feelings confidence. This was meant to build self-esteem and confidence in his recovery and client voiced it did help him relax and feel better about himself. Also how sobriety for him is what is best for him, "it is the right choice for living for him".
--- NOTE | 2016-08-22 17:05 | NUR ---
Relapse Prevention, 06/22, 1.0 hours, Client attended and actively participated in relapse prevention which focused on completing the quiz What Do You Know About Relapse?
--- NOTE | 2016-08-22 17:39 | NUR ---
ech Note: Client is working on [employer].
--- NOTE | 2016-08-22 23:20 | NUR ---
Tech Note: Client took walk around park for rec. Client attended A.A.Meeting. late to client mtg SE:EMDR with counselor
--- NOTE | 2016-08-22 23:26 | NUR ---
Education Note: Client attended a one hour session with [facility] on HIV/AIDS/STD's for education.
--- NOTE | 2016-08-23 04:50 | NUR ---
Bed Note: client was in bed with eyes closed and no distress at all bed checks.
--- NOTE | 2016-08-23 10:31 | NUR ---
Tech notes: Client is working on [email or web address]
--- NOTE | 2016-08-23 12:49 | NUR ---
Group 1.5 hrs 1:10 Client participated in orientating a new peer on the purpose of group and guidelines. Student: Antoni Garcia
--- NOTE | 2016-08-23 19:13 | NUR ---
Education: 1 Hour. Client attended Step 2 & Step 3 lecture given by staff.
--- NOTE | 2016-08-23 23:32 | NUR ---
Tech note : Client went for a walk around the park for rec and attended an onsite NA meeting. His mother was at the meeting. SE: interview with RAYNE
--- NOTE | 2016-08-24 05:16 | NUR ---
tech note: client was motionless in no distress at all bed checks.
--- NOTE | 2016-08-24 11:30 | NUR ---
AM GRP 1.5 HRS, Ratio 1:10/ Clt sat mostly quiet, but when he did offer feedback it was very good.
--- NOTE | 2016-08-24 13:54 | NUR ---
Tech Note: Client participated in Spiritual Enrichment in the morning and went for an outdoor walk in the afternoon. Client stated that he is working on reading the Big Book.
--- NOTE | 2016-08-24 14:18 | NUR ---
Education 1 Hour: Client heard a lecture and saw a demonstration on "Infection Prevention."
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
--- NOTE | 2016-08-24 17:12 | NUR ---
IS 1 hr/ Client and counselor discussed his assignments, helped him with how to do a page in Chasing [employer]-Game packet, but may need to change to other packet as client struggles with this. Client shared he really felt good after EMDR last session, that it was very relaxing and helped him with self-esteem, felt more assured/confident of himself with his recovery. Discussed his Peer Review today and Spirituality. Client has not been one to pray or believe God has time for him or actually would answer his prayers, but he did start praying in the past 3-4 days and another adrian here is helping him. Client was complimented that he is doing the program in many ways and has such willingness.
--- NOTE | 2016-08-24 23:14 | NUR ---
Tech note:client took walk for rec, participated in guided meditation and attended AA mtg. SE:ISAEL fernandez
--- NOTE | 2016-08-25 04:54 | NUR ---
Bed Note: Client was motionless with eyes closed at all bed checks.
--- NOTE | 2016-08-25 11:37 | NUR ---
GROUP 1.5 HRS. 1:9 Group discussion included processing step 1 assignment to included betraying values (pg. 10) and effects on onthers (pg. 11). Client offered only minimal feedback.
--- NOTE | 2016-08-25 13:51 | NUR ---
Tech Note: Client watched Predator Pt.2 video and is working on his Change Plan.
--- NOTE | 2016-08-25 23:53 | NUR ---
TECH NOTE: Client participated in reading guidelines, attended optional offsite AA meeting, and watched tv/movies. Client was redirected for laying on floor in hallway. Was late for curfew SE: video
--- NOTE | 2016-08-26 04:08 | NUR ---
BED NOTE: Client was in bed, motionless, with eyes closed all bed checks.
--- NOTE | 2016-08-26 16:08 | NUR ---
Tech Note: Client attended an off-site AA meeting in the morning and received visits in the afternoon. Client stated that he is working on, "My Change Plan."
--- NOTE | 2016-08-26 19:50 | NUR ---
TECH NOTE: Client played Artillery for REC, attended offsite AA meeting and watched tv/movies. SE: visitors
--- NOTE | 2016-08-27 04:14 | NUR ---
Bed Note: Clt lay motionless in bed with eyes closed showing no distress at all bed checks.
--- NOTE | 2016-08-27 16:18 | NUR ---
Tech Note: Client read chapter 4 for Big Book study. Clt is working on a Change Plan and went to [employer]. Clt had a visit.
--- NOTE | 2016-08-27 22:29 | NUR ---
Tech Note : Client listened to an AA panel member share his experience, strength and hope, watched tv and participated in community clean. Client attended an onsite AUDIO/VISUAL MANAGER meeting, his mother attende as well.
--- NOTE | 2016-08-28 04:51 | NUR ---
Bed Note: Clt lay motionless in bed with eyes closed showing no distress at all bed checks.
--- NOTE | 2016-08-28 11:30 | NUR ---
Group 1.5 hr/ 22:2 Clients all participated in Sculpturing today by role-playing, giving feedback and relating. This client was attentive and all did discuss relapse can happen to anyone, and how to prevent it.
--- NOTE | 2016-08-28 13:34 | NUR ---
Educational Note: Client watched a video "Inhalent Abuse"
--- NOTE | 2016-08-28 16:47 | NUR ---
Recovery 101 1 hr/ Clients all brought Big Books and were given highlighters to use big book as a tool in recovery. Group discussion was on honesty, half- measures, selfishness, resentments, forgiveness, 12 promises, acceptance, using sponsor, and more.
--- NOTE | 2016-08-28 18:22 | NUR ---
EDUCATION NOTE: 1HR Lecture on Feelings given by counselor.
--- NOTE | 2016-08-28 22:58 | NUR ---
tech note: Client went for a walk for rec, attended NA meeting SE: last night
--- NOTE | 2016-08-29 04:41 | NUR ---
bed note:client was in bed with eyes closed and no distress at all bed checks,except was awake at first bed check.
--- NOTE | 2016-08-29 09:15 | NUR ---
IS 1 hr/ Client and counselor did go over his relapse packet, he had first 4 pages done and is to continue work on this in aftercare. He is excited and grateful to get to go to [facility]. Client and counselor discussed relapse risks, stuffing feelings like he did yesterday and how they can build. Did fill out Continued Care Plan and gave client medallion for successful completion. Client did do survey. His mom will pick him up to go to [facility] at 10am (was running late so had him call to let [facility] know his mom wasn't here yet).
--- NOTE | 2016-08-29 10:23 | NUR ---
DISCHARGE NOTE Client completed treatment and left the facility, taking all personal belongings with him. Discharge instructions were reviewed and a signed copy provided to the client.
--- NOTE | 2016-10-08 11:57 | DS ---
ADMIT: 07/26/2016 RM/LOC: A.508 [facility] MR#: [id number] [address] [place] [address] [id number] [place], [place] [address] HÉCTOR RUIZ [address] [place] [address] General Discharge Summary SEX: M AGE: 26 : 1990 ADMISSION DATE: 07/26/2016 DISCHARGE DATE: 08/29/2016 INDICATION FOR HOSPITALIZATION: Héctor is a 26-year-old, single, white male from [place], admitted to residential level treatment at [facility] on July 26, 2016, after 3 months from [facility]. He had charges for felon with possession of deadly weapon and probation with previously for theft by unlawful level taking. His drug of choice was cannabis. Second drug of choice is alcohol. Third drug of choice is methamphetamines. Please see his admission H and P for the details regarding his history of present illness, past medical history, physical exam, and assessment at time of hospitalization. HOSPITAL COURSE: On admission, Héctor was admitted to our residential level treatment [facility]. He was started on multivitamin and thiamine given his history of alcohol abuse and dependency. Primary care counselor assigned was Danielle Adan. During treatment, relapses were identified and relapse prevention plan was outlined. Spirituality issues were addressed. His mother and father were involved in the family portion of treatment program. During treatment, he underwent individual and group therapy sessions on drug and alcohol abuse and dependency. He completed an educational series on substance abuse. He was overall accepting of substance abuse problems. He completed step 1 of Alcoholics Anonymous. During treatment, discharge was due to completion of residential level treatment program. Aftercare recommendations include referral to [facility] with outpatient counseling, sponsor assignment with active AA and NA meeting involvement. LABORATORY AND X-RAY DATA: During treatment, none indicated. ADMIT: 07/26/2016 RM/LOC: A.508 [facility] MR#: [id number] [address] [id number] HÉCTOR RUIZ [address] [place] [id number] General Discharge Summary SEX: M AGE: 26 : 1990 DISCHARGE MEDICATIONS: Include: 1. Multivitamin 1 daily. 2. Thiamine 100 mg daily. FINAL DISCHARGE DIAGNOSES: Include: 1. Cannabis use disorder, severe. 2. Alcohol use disorder, severe. 3. Stimulant use disorder, moderate to severe. 4. Tobacco dependency. PROCEDURES: Include drug and alcohol abuse dependency treatment and counseling. Please see his hospital record for the details. Seth Alvarez MD/ evelia JOB #: [id number] CC: Seth Alvarez MD, Attending Physician Triston Pollard MD, Family Physician
== END 2016-08-29 10:26 | disposition home or self-care (01) | DRG 895 ==
LOC: ADTC 09:45
PROVIDERS: ADMIT Family Medicine
DX: F12.20 Cannabis dependence, uncomplicated (principal); F15.20 Other stimulant dependence, uncomplicated; F10.20 Alcohol dependence, uncomplicated; F17.210 Nicotine dependence, cigarettes, uncomplicated; Z65.2 Problems related to release from prison; Z63.72 Alcoholism and drug addiction in family; Z23 Encounter for immunization